=== PATIENT | female | born 1990 | race American Indian/Alaskan Native ===

== ENCOUNTER 2019-01-13 12:51 | Outpatient (CLI) | payer OTHER ==
--- NOTE | 2019-01-13 14:56 | Cat Scan Report ---
CT MAXILLOFACIAL WITHOUT CONTRAST INDICATION: FACIAL TRAUMA WITH NASAL BRIDGE FRACTURE. TECHNIQUE: CT facial bones without contrast All CT scans at this location are performed using CT dose reduction for ALARA by means of automated exposure control. COMPARISON: None available. FINDINGS: FACIAL BONES: There is a mildly displaced left nasal fracture with about 1 mm depression. There is al so a nondisplaced fracture of the midline anterior maxillary process. There is no other acute maxillo facial fracture. There is a chronic fracture of the medial right orbital wall with medial displacemen t of the medial right orbital wall. The adjacent medial rectus on the right is mildly thickened and m ildly enters the fracture site. PARANASAL SINUSES: No significant abnormality. ORBITS: No significant abnormality. VISUALIZED INTRACRANIAL STRUCTURES: No significant abnormality. ADDITIONAL FINDINGS: None. IMPRESSION: 1. Mildly displaced and depressed left nasal fracture. 2. Nondisplaced fracture of the midline anterior maxillary process. 3. Chronic appearing medial right orbital wall fracture with medial displacement of the medial right orbital wall and mild thickening of the right medial rectus. Signer Name: Ricardo Stinson MD Signed: 01/13/2019 2:51 PM Workstation Name: [id number]
== END 2019-01-13 12:52 | disposition home or self-care (01) ==
LOC: CT 12:51
PROVIDERS: ATTEND Specialist
DX: S02.2XXA Fracture of nasal bones, initial encounter for closed fracture (principal); X58.XXXA Exposure to other specified factors, initial encounter; Y93.89 Activity, other specified; Y99.8 Other external cause status; Y92.89 Other specified places as the place of occurrence of the external cause
CPT/HCPCS: 70486